=== PATIENT | female | born 1985 | race African-American/Black ===

== ENCOUNTER 2019-08-27 12:30 | Emergency (ER) | payer OTHER ==
[~2019-08-27] VITALS: Ht 165.1 cm; Wt 78.3 kg
[2019-08-27 12:58] LABS: BASO % 0.2 % (0.0-1.0); EOS # 0.2 10^3/uL (0.0-0.5); EOS % 1.8 % (0.0-3.0); HEMATOCRIT 30.4 % (36.0-47.0); HEMOGLOBIN 8.9 g/dl (12.0-15.5); LYMPH # 2.8 10^3/uL (1.5-5.0); LYMPH % 34.5 % (24.0-44.0); MEAN CORPUSCULAR HEMOGLOBIN 20.6 pg (27.0-33.0); MEAN CORPUSCULAR HGB CONC 29.3 g/dl (32.0-36.5); MEAN CORPUSCULAR VOLUME 70.5 fl (80.0-96.0); MONO # 0.4 10^3/uL (0.0-0.8); MONO % 5.4 % (0.0-5.0); NEUTROPHILS # 4.7 10^3/uL (1.5-8.5); PLATELET COUNT, AUTOMATED 390 10^3/uL (150-450); RED BLOOD COUNT 4.31 10^6/uL (4.00-5.40); WHITE BLOOD COUNT 8.2 10^3/uL (4.0-10.0)
[2019-08-27 13:24] LABS: BLOOD UREA NITROGEN 8 MG/DL (7-18); CALCIUM LEVEL 8.8 MG/DL (8.5-10.1); CARBON DIOXIDE LEVEL 24 MEQ/L (21-32); CHLORIDE LEVEL 107 MEQ/L (98-107); GLOMERULAR FILTRATION RATE > 60.0 (>60); GLUCOSE, FASTING 93 MG/DL (70-100); HCG, SERUM QUANTITATIVE 136 MIU/ML; POTASSIUM SERUM 3.9 MEQ/L (3.5-5.1); SODIUM LEVEL 137 MEQ/L (136-145)
[2019-08-27 14:11] LABS: ALBUMIN 3.4 GM/DL (3.2-5.2); ALT/SGPT 16 U/L (12-78); BILIRUBIN,DIRECT < 0.1 MG/DL (0.0-0.2); BILIRUBIN,TOTAL 0.3 MG/DL (0.2-1.0); TOTAL PROTEIN 7.6 GM/DL (6.4-8.2)
--- NOTE | 2019-08-27 14:34 | REP ---
First trimester obstetric ultrasound for vaginal bleeding with transabdominal, endovaginal and Doppler ultrasound assessment: The uterus is anteverted and retroflexed. There is a focal hypoechoic subserosal nodule in the anterior myometrium measuring 1.0 x 0.6 x 1.2 cm, likely a small fibroid. There is no intrauterine gestational sac or pole. The endometrium is thickened measuring up to 20 mm. Right ovary: The right ovary measures 2.4 x 1.7 x 1.7 cm and is normal size. There is no dominant mass or cyst. There is vascular flow with the Doppler resistive index in the parenchymal arteries measuring 0.63. Left ovary: The left ovary measures 3.1 x 1.8 x 2.9 cm. There is a complex cyst measuring 1.4 x 1.5 x 1.7 cm. There is vascular flow with the Doppler resistive index in the parenchymal arteries measuring 0.50. There is a trace of free fluid in the cul-de-sac. Impression: There is no intrauterine gestation. This is nonspecific and could represent spontaneous , early gestation not yet visible by ultrasound or ectopic gestation. The endometrium is thickened. There is a complex 1.7 cm left ovarian cyst. There is a trace of free fluid in the pelvis. Electronically Signed by Nato Schafer MD 08/27/2019 02:26 P
[2019-08-27 15:30] VITALS: BP 126/73
== END 2019-08-27 15:50 | disposition home or self-care (01) ==
LOC: M ED 12:30
DX: O20.8 Other hemorrhage in early pregnancy (principal); O99.011 Anemia complicating pregnancy, first trimester; O34.81 Maternal care for other abnormalities of pelvic organs, first trimester; O09.521 Supervision of elderly multigravida, first trimester; Z87.59 Personal history of other complications of pregnancy, childbirth and the puerperium; Z3A.00 Weeks of gestation of pregnancy not specified

== ENCOUNTER → 2020-10-10 | Outpatient (CLI) | payer OTHER ==
--- NOTE | 2020-10-10 14:27 | REP ---
INDICATION: SIZE GREATER THEN DATES. COMPARISON: 08/27/2019 TECHNIQUE: Multiple sonographic images of the gravid uterus. FINDINGS: There is a single intrauterine gestation in a cephalic presentation. The placenta is posterior and fundal with grade 2 maturity. There is no previa. The heart rate is 135 beats per minute. Subjectively amniotic fluid volume is normal. Amniotic fluid index is 14.1. Normal is 7.3-23.4. The composite ultrasound gestational age by the study today is 38 weeks 1 day with an NITA of 10/23/2020. Gestational age by LMP is 38 weeks 3 days with an NITA of 10/21/2020. weight is 3462 g. This corresponds to 7 lb 10 oz. This is the 63rd percentile for 38 weeks 3 days. Umbilical artery Doppler evaluation: ASSESSMENT: PSV 77.5 centimeters/second EDV 33.5 centimeters/second S/D 2.31 (1.53-3.33) RI 0.57 (0.42-0.70). Although a complete anatomic survey is not performed because of gestational age the following anatomic structures are identified and are unremarkable: Cranium, falx, lungs, cardiac rhythm, stomach, abdominal wall, right and left kidneys and three-vessel cord. IMPRESSION: Viable 38 week 1 day intrauterine gestation as discussed in detail above. <Electronically signed by Nato Schafer > 10/10/20 [id number]
== END ==
LOC: M RAD 13:14
PROVIDERS: ATTEND Registered Nurse Maternal Newborn
DX: Z36.89 Encounter for other specified antenatal screening (principal); Z3A.38 38 weeks gestation of pregnancy

== ENCOUNTER 2020-10-25 05:49 | Inpatient (IN) | payer OTHER ==
[~2020-10-25] VITALS: Ht 165.1 cm; Wt 87.5 kg
[2020-10-25] VITALS (7 sets, daily range): BP systolic 84–115; BP diastolic 53–77
[2020-10-25 07:41] LABS: HEMATOCRIT 40.8 % (36.0-47.0); HEMOGLOBIN 12.9 g/dl (12.0-15.5); MEAN CORPUSCULAR HEMOGLOBIN 27.3 pg (27.0-33.0); MEAN CORPUSCULAR HGB CONC 31.6 g/dl (32.0-36.5); MEAN CORPUSCULAR VOLUME 86.4 fl (80.0-96.0); PLATELET COUNT, AUTOMATED 197 10^3/uL (150-450); RED BLOOD COUNT 4.72 10^6/uL (4.00-5.40); WHITE BLOOD COUNT 6.6 10^3/uL (4.0-10.0)
[2020-10-25] MEDS ORDERED: ePHEDrine SULFATE 25 MG/5 ML(5MG/ML) SYRINGE As Ordered ONE (07:49)
[2020-10-25] MEDS ORDERED: MORPHINE PRES-FREE INJ 10 MG/10 ML VIAL (J2274) As Ordered ONE (07:49)
[2020-10-25] MEDS ORDERED: PHENYLephrine 500MCG 5ML (100MCG/ML) SYRINGE As Ordered ONE (07:49)
[2020-10-25] MEDS ORDERED: OXYTOCIN 30 UNITS IN 0.9% NaCl 500ML IV BAG (J2590) As Ordered ONE (07:49)
[2020-10-25] MEDS ORDERED: METOCLOPRAMIDE INJ 10MG/2ML VIAL (J2765 PER 1) As Ordered ONE (07:50)
[2020-10-25] MEDS ORDERED: NALOXONE INJ 0.4MG/1ML VIAL (J2310 PER 1MG) IV PRN ×2 (08:04)
[2020-10-25] MEDS ORDERED: ONDANSETRON 4MG/2ML VIAL IV PRN (08:04)
[2020-10-25] MEDS ORDERED: NALBUPHINE HCL 10 MG/ML AMP (J2300) IV PRN (08:04)
[2020-10-25] MEDS ORDERED: METOCLOPRAMIDE INJ 10MG/2ML VIAL (J2765 PER 1) IV PRN (08:04)
[2020-10-25] MEDS ORDERED: KETOROLAC 60MG 2ML VIAL As Ordered ONE (08:42)
[2020-10-25] MEDS ORDERED: ONDANSETRON 4MG/2ML VIAL As Ordered ONE (08:42)
[2020-10-25 08:55] LABS: CORD GAS ABE V -3.1; CORD GAS HCO3 V 23.3 MEQ/L; CORD GAS O2 SAT V 67.6 %; CORD GAS PCO2 V 46.4 mmHg; CORD GAS PH V 7.318 UNITS; CORD GAS PO2 V 30.2 mmHg; CORD GAS SBC V 21.3 MEQ/L; CORD GAS TCO2 V 24.7 MEQ/L
[2020-10-25 08:57] LABS: CORD GAS ABE A -8.2; CORD GAS HCO3 A 20.7 MEQ/L; CORD GAS O2 SAT A 76.3 %; CORD GAS PH A 7.177 UNITS; CORD GAS PO2 A 39.9 mmHg; CORD GAS SBC A 17.5 MEQ/L; CORD GAS TCO2 A 22.4 MEQ/L
--- NOTE | 2020-10-25 09:34 | ROOPDOC ---
[facility] Report Of Operation Report of Operation DATE OF PROCEDURE: 10/25/20 PREPROCEDURE DIAGNOSES: 1. History of previous section 2. Elderly multigravida 3. 40 weeks gestation 4. Declines TOLAC POSTPROCEDURE DIAGNOSES: 1. History of previous section 2. Elderly multigravida 3. 40 weeks gestation 4. Declines TOLAC 5. Meconium fluid 6. Nuchal cord x2 7. Bandolier cord x1 8. Adhesions PROCEDURE: 1. Elective repeat low transverse section 2. Adhesiolysis SURGEON: Evelina Angel DO CENTER LEAD CONSULTANT: Charly Mims DO ANESTHESIA: Spinal ESTIMATED BLOOD LOSS: Approximately 500 mL. FLUIDS: 1600mL LR URINE OUTPUT: 125mL COMPLICATIONS: None FINDINGS: Dense fascial adhesions. Peritoneal adhesions to the anterior aspect of the uterus. Thin lower uterine segment. Male infant in cephalic presentation. Meconium fluid on amniotomy. Infant delivered with double nuchal cord and shoulder/bandolier cord x1. with poor tone and no respiratory effort upon delivery. Delayed cord clamping not performed due to status. Three vessel cord. APGARS 3/9. Weight 3640g ([id number]). Normal-appearing posterior placenta with central cord insertion with meconium-stained membranes. Normal-appearing bilateral fallopian tubes, bilateral ovaries, and uterus. PROCEDURE NOTE: The risks, benefits, indications and alternatives of the procedure were reviewed with the patient and informed consent was obtained. The patient was taken to the operating room where spinal anesthesia was obtained without difficulty and found to be adequate. Ancef 2gm was given IV 30 minutes prior to incision time. She was then prepped and draped in the normal, sterile fashion in the dorsal supine position with a leftward tilt. A Pfannenstiel skin incision was then made with the scalpel and carried through to the underlying layer of fascia with the Bovie. The fascia was incised in the midline and the incision extended laterally with the Alcantara scissors. The superior aspect of the fascial incision was grasped with the Alondra clamps, elevated, and the underlying rectus muscles dissected off with the Bovie. Extensive adhesive disease of the fascia was encountered requiring extensive careful dissection with the Bovie and Alcantara scissors. Attention was then turned to the inferior aspect of this incision, which, in a similar fashion, was grasped, tented up with the Alondra clamps and the rectus muscle dissected off aided with Alcantara scissors. Rectus muscles were then at the midline; the peritoneum identified, tented up using two Danni clamps, and entered sharply with Metzenbaum scissors. Peritoneal adhesions to the anterior aspect of the uterus were reduced using Bovie cautery. The peritoneal incision was then extended with good visualization of the bladder. The Mobius self-retaining retractor was then inserted. The vesicouterine peritoneum was found to have already been incised while attempting to reduce adhesions. This incision was then extended laterally and the bladder flap created digitally. Next, the lower uterine segment was incised in a transverse fashion with the scalpel. The uterine incision was then extended manually. The amniotic sac was artificially ruptured, productive of copious amount (1100mL) of meconium fluid. Infant was found to be in cephalic presentation. The infants head delivered atraumatically in the ROT position through the hysterotomy without difficultly. Thick meconium was appreciated to be coming out of the mouth/nares therefore the infant's airway was cleared prior to delivery of the remainder of . Double nuchal cord and shoulder/bandolier cord were encountered that were very tight and required manual reduction to effect delivery of 's body. The was noted to have poor tone with no respiratory effort. Therefore, the cord doubly clamped and cut and the infant was handed off to the waiting Team. Cord gases and a Cord blood sample were obtained. IV pitocin bolus was initiated upon delivery of the onto the surgical field. The placenta was then removed spontaneously with gently traction on the umbilical cord. The uterus was cleared of all clots and debris. The uterine incision was repaired with 0-monocryl in a running, locked fashion with excellent hemostasis noted. Inspection revealed normal uterus, bilateral fallopian tubes, and bilateral ovaries. Reinspection of the hysterotomy was notable for hemostasis. The Mobius self-retaining retractor was removed from the abdomen. The peritoneum was reapproximated using 3-0 vicryl in a running, non-locking fas hion. The fascia was reapproximated with 0-vicryl in a running, non-locking fashion. Irrigation was performed. The subcutaneous layer was closed with 3-0 vicryl in a interrupted fashion. The skin was then closed with 4-0 monocryl in a subcuticular fashion. The incision was then dressed with steri-strips and a pressure dressing applied. At the completion of the case, bimanual exam p erformed with good uterine tone and no vaginal bleeding. The patient tolerated the procedure well. Sponge, lap and needle counts were correct times three. The patient was taken to the recovery room in stable condition. EVELINA ANGEL DO Oct 25, 2020 09:21
[2020-10-25] MEDS ORDERED: PERCOCET 5MG/325MG TAB PO PRN (09:35)
[2020-10-25] MEDS ORDERED: fentaNYL 100 MCG/2 ML INJECTION (J3010) IV PRN (09:35)
[2020-10-25] MEDS ORDERED: LR 1,000 ML IV SCH (09:35)
[2020-10-25] MEDS ORDERED: NALBUPHINE HCL 10 MG/ML AMP (J2300) As Ordered ONE (09:39)
[2020-10-25] MEDS: diphenhydrAMINE 50MG/ML VIAL (J1200) IV PRN ×2 (16:49→20:54)
[2020-10-26] MEDS: diphenhydrAMINE 50MG/ML VIAL (J1200) IV PRN (01:10)
[2020-10-26 02:00] VITALS: BP 123/76
[2020-10-26 06:00] VITALS: BP 104/62
--- NOTE | 2020-10-26 08:06 | IPNPDOC ---
Progress Note Date of Service: Oct 26, 2020 Progress Note Ms. Wakefield is a 35 yo G3 now P3 who underwent an uncomplicated, planned RLTCS yesterday morning at 40+4 weeks gestation. She reports feeling well today, just sore. She has been ambulatory and is tolerating a regular diet. Pain is well controlled. Lochia is minimal. Vitals - VSS, afebrile, normotensive, nontachycardic General - AAOX3, sitting up in bed, NAD Abdomen - Fundus firm at U-2. No fundal tenderness. Pressure dressing removed. Incision clean/dry/intact. Steri strips in place. Minimal tenderness to palpation. Extremities - No edema UO - excellent Labs: Pre op H/H 12.9/40/8 ---> pending this AM CBC Ms. Wakefield is doing well and is making an appropriate postoperative / recovery. Will give abdominal binder. Continue routine post op care. Anticipate DC home tomorrow if she continues to do well and is meeting all criteria. Thony Berry DO VS, I&O, 24H, Fishbone Vital Signs/I&O Vital Signs Date Time Temp Pulse Resp B/P (MAP) Pulse Ox O2 Delivery O2 Flow Rate FiO2 10/26/20 06:00 98.8 62 16 104/62 (76) 100 Room Air I&O- Last 24 Hours up to 6 AM 10/26/20 06:00 Intake Total 2858 ml Output Total 3025 ml Balance -167 ml Laboratory Data 24H LABS Laboratory Tests 2 10/25/20 08:43: Cord Arterial Blood pH 7.177, Cord Arterial Blood PCO2 57.0, Cord Arterial Blood PO2 39.9, Cord Arterial Blood HCO3 20.7, Cord Arterial Blood Total CO2 22.4, Cord Arterial Blood Base Excess -8.2, Cord Arterial Base Excess (Standard 17.5, Cord Arterial Bld Oxygen Saturation 76.3, Cord Venous Blood pH 7.318, Cord Venous Blood PCO2 46.4, Cord Venous Blood PO2 30.2, Cord Venous Blood HCO3 23.3, Cord Venous Blood Total CO2 24.7, Cord Venous Base Excess (Actual) -3.1, Cord Venous Base Excess (Standard) 21.3, Cord Venous Blood Oxygen Saturation 67.6 THONY BERRY DO Oct 26, 2020 08:06
[2020-10-26 08:23] LABS: HEMATOCRIT 36.6 % (36.0-47.0); HEMOGLOBIN 11.5 g/dl (12.0-15.5); MEAN CORPUSCULAR HEMOGLOBIN 27.8 pg (27.0-33.0); MEAN CORPUSCULAR HGB CONC 31.4 g/dl (32.0-36.5); MEAN CORPUSCULAR VOLUME 88.4 fl (80.0-96.0); PLATELET COUNT, AUTOMATED 158 10^3/uL (150-450); RED BLOOD COUNT 4.14 10^6/uL (4.00-5.40); WHITE BLOOD COUNT 6.5 10^3/uL (4.0-10.0)
[2020-10-26 10:00] VITALS: BP 119/70
[2020-10-26 14:00] VITALS: BP 118/68
[2020-10-26 17:58] VITALS: BP 110/64
[2020-10-26 22:00] VITALS: BP 108/75
[2020-10-27] MEDS ORDERED: ACETAMINOPHEN 500 MG TAB PO ONE (00:50)
[2020-10-27 02:00] VITALS: BP 121/76
[2020-10-27 05:59] VITALS: BP 129/71
[2020-10-27] MEDS ORDERED: IBUP80TA PO (08:36)
[2020-10-27] MEDS ORDERED: DOK1CAP7 PO (08:36)
[2020-10-27] MEDS ORDERED: PERCOCET PO (08:36)
== END 2020-10-27 17:30 | disposition home or self-care (01) | DRG 773 ==
LOC: M LDI 05:49 → M OBS 10:20
PROC: 10D00Z1 Extraction of Products of Conception, Low, Open Approach (ICD-10-PCS; principal; 2020-10-25 07:30)
DX: O34.211 Maternal care for low transverse scar from previous cesarean delivery (principal); Z3A.40 40 weeks gestation of pregnancy; O77.0 Labor and delivery complicated by meconium in amniotic fluid; O69.1XX0 Labor and delivery complicated by cord around neck, with compression, not applicable or unspecified; O69.2XX0 Labor and delivery complicated by other cord entanglement, with compression, not applicable or unspecified; Z37.0 Single live birth; O48.0 Post-term pregnancy